=== PATIENT | male | born 1985 ===

== ENCOUNTER 2018-04-03 00:48 | Emergency (ER) | payer OTHER ==
[2018-04-03 01:03] VITALS: RESP 18; TEMP 98.5; O2SAT 98
--- NOTE | 2018-04-03 01:30 | C.PDOC ---
History Of Present Illness 32 y/o healthy male c/o pain and some bleeding from a lump on back of head for last 3 days. pt sts it just appeared 3 days ago. unable to sleep tonight due to pain. no fever. Time Seen by Provider: 04/03/18 01:20 Chief Complaint (Nursing): Abnormal Skin Integrity History Per: Patient History/Exam Limitations: no limitations Onset/Duration Of Symptoms: Days (3) Current Symptoms Are (Timing): Worse Location Of Injury: Posterior: Head Quality Of Symptoms: Painful, Swollen Severity: Moderate Past Medical History Reviewed: Historical Data, Nursing Documentation, Vital Signs Vital Signs: Last Vital Signs Temp 98.5 F 04/03/18 01:00 Pulse 76 04/03/18 01:00 Resp 18 04/03/18 01:00 BP 143/96 H 04/03/18 01:00 Pulse Ox 98 04/03/18 01:00 - Medical History PMH: No Chronic Diseases Family History: States: Unknown Family Hx - Social History Hx Tobacco Use: Yes Hx Alcohol Use: Yes Hx Substance Use: No - Immunization History Hx Tetanus Toxoid Vaccination: No Hx Influenza Vaccination: No Hx Pneumococcal Vaccination: No Review Of Systems Constitutional: Negative for: Fever, Chills ENT: Negative for: Ear Pain, Throat Pain Cardiovascular: Negative for: Chest Pain Respiratory: Negative for: Cough, Shortness of Breath Gastrointestinal: Negative for: Vomiting, Abdominal Pain Skin: Positive for: Other (swollen tender mass to the back of head) Neurological: Negative for: Weakness, Numbness Physical Exam - Physical Exam Appears: Non-toxic, No Acute Distress Skin: Warm, Dry, Other (1 cm round elevated area left distal occiput that is tender, crusty, not fluctuant, , scant purulent discharge with pressure, with approx 3-4 cm width of induration, warmth and tenderness surrounding central lesion, tender to palpation. ) Head: Normacephalic, Swelling Eye(s): bilateral: Normal Inspection Oral Mucosa: Moist Neck: Supple Cardiovascular: Rhythm Regular, No Murmur Respiratory: Normal Breath Sounds, No Wheezing Neurological/Psych: Oriented x3, Normal Speech, Normal Cognition ED Course And Treatment - Laboratory Results Result Diagrams: 04/03/18 01:58 04/03/18 01:58 O2 Sat by Pulse Oximetry: 98 Medical Decision Making Medical Decision Making: pt with likely epidermal cyst, now infected. 0340 pt with ?infected cyst with scant purulent discharge, and surrounding cellulitis , indurated area to occipital scalp, elevated wbc, pt declines admission. will leave [facility]a, pt understands risk and consequences including worsening of condition, permanent disability or . pt may return at any time to ed. discharged with keflex and bactrim and advised to see his pmd today. Disposition - Disposition Referrals: Jorge Zarate MD [Medical Doctor] - Disposition: AGAINST MEDICAL ADVICE Disposition Time: 03:48 Condition: STABLE Additional Instructions: Apply warm compresses to scalp area to encourage drainage. Tylenol or Motrin for pain. Take antibiotics as prescribed. Please follow up with Dr Zarate today. Please have your blood sugar re-checked; was 141 in the ER. If you d evelop a fever., worse pain. increased swelling to scalp area or any other concerns, return to ER for further evaluation. Prescriptions: Cephalexin [cephalexin] 500 mg PO QID #28 cap Sulfamethoxazole/Trimethoprim [Bactrim DS 800 mg-160 mg] 1 tab PO BID #14 tab Instructions: Cellulitis (Skin Infection), Adult (DC), Abscess Drainage, Percutaneous (DC) Forms: [facility] ([place]), General Discharge Instructions - Clinical Impression Clinical Impression: Cellulitis of occipital region of scalp, Abscess, scalp
[2018-04-03 02:15] LABS: BASO # 0.1 K/uL (0.0-0.2); BASO % 0.5 % (0.0-2.0); EOS # 0.3 K/uL (0.0-0.7); EOS % 2.4 % (0.0-4.0); HEMOGLOBIN 15.3 g/dL (12.0-18.0); LYMPH % 14.6 % (20.0-40.0); MEAN CELL VOLUME 87.1 fL (80.0-94.0); MEAN CORPUSCULAR HEMOGLOBIN 29.9 pg (27.0-31.0); MEAN CORPUSCULAR HGB CONC 34.3 g/dL (33.0-37.0); MEAN PLATELET VOLUME 7.9 fL (7.2-11.7); MONO # 1.6 K/uL (0.0-0.8); MONO % 11.7 % (0.0-10.0); NEUT # 9.8 K/uL (1.8-7.0); NEUT % 70.8 % (50.0-75.0); RBC 5.11 Mil/uL (4.40-5.90); RED CELL DISTRIBUTION WIDTH 12.9 % (11.5-14.5); WHITE BLOOD COUNT 13.8 K/uL (4.8-10.8)
[2018-04-03 02:19] LABS: BLOOD UREA NITROGEN 13 mg/dL (9-20); CALCIUM 8.8 mg/dl (8.6-10.4); GFR NON-AFRICAN AMERICAN > 60
[2018-04-03 03:28] VITALS: BP 145/91; PULSE 82
[2018-04-03] MEDS ORDERED: Tmp-Smz 800 mg-160 mg DS Tab PO STA (03:28)
[2018-04-03] MEDS ORDERED: Tmp-Smz 800 mg-160 mg DS Tab ONE (03:53)
== END 2018-04-03 04:00 | disposition left against medical advice (07) ==
LOC: C.ER 00:48 → SUPCPDRO 00:48 → C.ER 04:00
DX: L03.811 Cellulitis of head [any part, except face] (principal); L02.811 Cutaneous abscess of head [any part, except face]